=== PATIENT | male | born 1990 | race Caucasian/White ===

== ENCOUNTER 2017-09-01 02:42 | Emergency (ER) | payer BC ==
[2017-09-01] MEDS: IPRATRPIUM/ALBUTEROL 0.5/2.5MG 3 ML NEBU. NEB (03:15)
[2017-09-01] MEDS ORDERED: DEXAMETHASONE SOD PHOS 20 MG/5 ML VIAL. (03:18)
[2017-09-01] MEDS: DEXAMETHASONE SOD PHOS 4 MG/ML VIAL IM (03:21)
== END 2017-09-01 04:00 | disposition home or self-care (01) ==
LOC: ER 02:42
DX: J45.901 Unspecified asthma with (acute) exacerbation (principal); Z88.1 Allergy status to other antibiotic agents
CPT/HCPCS: 93005; 94640; 96372; 99284-25; J1100; J7620